=== PATIENT | male | born 1975 | race Caucasian/White ===

== ENCOUNTER 2021-08-09 05:57 | Emergency (ER) | payer OTHER ==
[~2021-08-09] VITALS: Ht 175.3 cm; Wt 77.0 kg
[~2021-08-09 05:57] MED LIST: JANUVIA100 MG PO; LISINOPRIL10 MG PO
--- OUTSIDE RECORDS SUMMARY | 2021-08-09 06:00 | XMS ---
PreManage Notification: THEODORE BAER Security Scientific Software Engineer Events No recent Security Events currently on file CRITERIA MET - [facility] - 2 Visits in 30 Days CARE PROVIDERS Jaylen Rivas Community Health Worker 05/27/2018-Vinh Plataa - PHONE: [phone] SHERRI TRINH Nurse Practitioner Current PHONE: Unknown MONTSE GRANADOS Nurse Practitioner: Family Current PHONE: Unknown Jayson has no Care Guidelines for this patient. E.D. VISIT COUNT (12 MO.) 3 [facility] 2 [facility] TOTAL 5 NOTE: Visits indicate total known visits. ED/UCC VISIT TRACKING (12 MO.) 08/09/2021 05:57 [facility] [place] TYPE: Emergency COMPLAINT: - BACK PAIN 08/01/2021 11:08 [facility] [place] TYPE: Emergency COMPLAINT: - R FLANK/STOMACHE PAIN DIAGNOSES: - Type 2 diabetes mellitus without complications - Old myocardial infarction - Unspecified abdominal pain 06/06/2021 21:19 [facility] ORIENT OR TYPE: Emergency COMPLAINT: - CHEST PAIN DIAGNOSES: - CHEST PAIN 03/14/2021 19:26 [facility] TYPE: Emergency DIAGNOSES: - Pain in right wrist - WRIST INJURY POSS BROKEN 09/22/2020 01:01 [facility] TYPE: Emergency DIAGNOSES: - Cellulitis of left finger - INFECTION INPATIENT VISIT TRACKING (12 MO.) No inpatient visits to display in this time frame [id number]
[2021-08-09] MEDS ORDERED: JANUVIA100 MG PO (07:57)
[2021-08-09] MEDS ORDERED: LISINOPRIL10 MG PO (07:57)
[2021-08-09] MEDS ORDERED: METHOCARBAMOL750 MG PO (07:57)
== END 2021-08-09 08:08 | disposition home or self-care (01) ==
LOC: ED 05:57
DX: N20.0 Calculus of kidney (principal); M54.50 Low back pain, unspecified; E11.9 Type 2 diabetes mellitus without complications; I25.2 Old myocardial infarction; Z79.899 Other long term (current) drug therapy
CPT/HCPCS: 74176; 81001; 96372; 99284-25; J1885

== ENCOUNTER 2021-08-21 21:54 | Emergency (ER) | payer OTHER ==
[~2021-08-21] VITALS: Ht 175.3 cm; Wt 97.2 kg
[~2021-08-21 21:54] MED LIST changes: +METHOCARBAMOL750 MG PO
--- OUTSIDE RECORDS SUMMARY | 2021-08-21 21:56 | XMS ---
PreManage Notification: THEODORE BAER Security Herpetology Teacher Events No recent Security Events currently on file CRITERIA MET - [facility] - 2 Visits in 30 Days CARE PROVIDERS Jaylen Rivas Community Health Worker 05/27/2018-Vinh Richter - PHONE: [phone] SHERRI TRINH Nurse Practitioner Current PHONE: [phone] MONTSE GRANADOS Nurse Practitioner: Current PHONE: [phone] Jayson has no Care Guidelines for this patient. E.Kenisha VISIT COUNT ([address] [facility] 3 [facility] TOTAL 6 NOTE: Visits indicate total known visits. ED/UCC VISIT TRACKING (12 MO.) 08/21/2021 21:55 [facility] [place] TYPE: Emergency COMPLAINT: - BACK PAIN, RT SIDED ABD PAIN 08/09/2021 05:57 [facility] [place] TYPE: Emergency COMPLAINT: - BACK PAIN DIAGNOSES: - Old myocardial infarction - Dorsalgia, unspecified - Calculus of kidney - LOW BACK PAIN, UNSPECIFIED - Other buttermilk drier operator (current) drug therapy - Type 2 diabetes mellitus without complications 08/01/2021 11:08 [facility] [place] TYPE: Emergency COMPLAINT: - R FLANK/STOMACHE PAIN DIAGNOSES: - Type 2 diabetes mellitus without complications - Old myocardial infarction - Unspecified abdominal pain 06/06/2021 21:19 [facility] [place] TYPE: Emergency COMPLAINT: - CHEST PAIN DIAGNOSES: - CHEST PAIN 03/14/2021 19:26 [facility] OR TYPE: Emergency DIAGNOSES: - Pain in right wrist - WRIST INJURY POSS BROKEN 09/22/2020 01:01 [facility] OR TYPE: Emergency DIAGNOSES: - Cellulitis of left finger - INFECTION INPATIENT VISIT TRACKING (12 MO.) No inpatient visits to display in this time frame [email or web address]
[2021-08-22] MEDS ORDERED: HYDROCODON-ACE1 EA10 PO (01:28)
== END 2021-08-22 01:41 | disposition home or self-care (01) ==
LOC: ED 21:54
DX: R10.31 Right lower quadrant pain (principal); E11.9 Type 2 diabetes mellitus without complications; I25.2 Old myocardial infarction; Z79.899 Other long term (current) drug therapy
CPT/HCPCS: 74177; 76705; 81001; 85025; 99284-25; J1885; J7030; Q9967